=== PATIENT | female | born 1940 | race American Indian/Alaskan Native ===

== ENCOUNTER 2018-12-04 10:00 | Emergency (ER) | payer OTHER ==
[2018-12-04 10:40] VITALS: TEMP 98.3; BMI 25.2
[2018-12-04] MEDS ORDERED: CYCLOBENZAPRINE HCL 5 MG TABLET PO ONE (11:13)
[2018-12-04] MEDS ORDERED: LIDOCAINE 5% TOPICAL PATCH TP ONE (11:13)
--- NOTE | 2018-12-04 11:24 | PDOC ---
History of Present Illness - General Chief Complaint: Lightheaded Stated Complaint: FALL Time Seen by Provider: 12/04/18 10:45 History Source: Patient, Family Exam Limitations: No Limitations - History of Present Illness Initial Comments: 12/04/18 11:24 HPI 78-year-old female with history of osteoarthritis and chronic back pain on muscle relaxer and tramadol as needed presenting with dizziness today. He was walking to go get water in the kitchen when she felt lightheaded/dizzy but no full or trauma or syncope. She does endorse mild headache and dizziness. Of note, 2 days ago she had a similar episode where she was walking and fell at the door when she felt dizzy, subsequently falling onto the right side of her body, no LOC. Since then she endorsed right pinky finger pain bruising and swelling with formation of scar, right shoulder and lower back/buttock pain, worse with moving. She is able to ambulate without difficulty. Has been taking her home regimen of medications with some relief. At the time of the fall, her family member suggested she go get evaluated the patient had refused at the time and also did not want to see her primary doctor yesterday. No new medication changes recent illnesses, respiratory or GI related. Denies syncope, fever, chills, chest pain, SOB, palpitation, weakness, N, V, D, abdominal pain, bladder and bowel problems, leg swelling, Allergies: None Past Medical History: arthritis, chronic back pain Social history: Lives with family. No tobacco, ETOH or drug use. Surgical history: none Meds: as documented in EMR Past History - Past Medical History Allergies/Adverse Reactions: Allergies Allergy/AdvReac Type Severity Reaction Status Date / Time No Known Allergies Allergy Verified 12/04/18 10:29 Home Medications: Ambulatory Orders NK [No Known Home Medication] 12/04/18 COPD: No - Suicide/Smoking/Psychosocial Hx Smoking History: Never smoked Have you smoked in the past 12 months: No Information on smoking cessation initiated: No Hx Alcohol Use: No Drug/Substance Use Hx: No Review of Systems - Review of Systems Able to Perform ROS?: Yes Comments:: 12/04/18 11:24 Review of systems Constitutional: no fevers or chills. HEENT: +headache or dizziness. No visual/hearing disturbances. CVS: no cp or syncope. Resp: no sob. No cough. Gastrointestinal: no abdominal pain, nausea or vomiting. Genitourinary: no urinary sx, hematuria. MUSCULOSKELETAL: No joint swelling. +buttock and lower back pain, +finger pain, +shoulder pain. +joint and muscle aches. SKIN: no redness or skin changes, no discharge, no rash. +scar wound to right finger. Hematologic: no easy bruising/bleeding. NEUROLOGIC: +headache, dizziness, No LOC or altered mental status. No weakness, numbness or tingling. Psych: no anxiety or depression Allergic/Immunologic: no allergies All other systems reviewed and negative, or as documented in HPI. *Physical Exam - Vital Signs Last Vital Signs Temp Pulse Resp BP Pulse Ox 98.3 F 70 18 128/71 97 12/04/18 10:25 12/04/18 10:25 12/04/18 10:25 12/04/18 10:25 12/04/18 10:25 - Physical Exam Comments: 12/04/18 11:24 Physical exam: General: GCS 15 NAD, well appearing HEENT: NCAT, PERRL, EOMI. Airway intact. Dentition intact. No e/o septal hematoma, nasal bridge stable. Neck: neck supple, no midline C spine tenderness or deformity, ROM intact. No anterior mass or crepitus, trachea midline. Resp: Lungs clear bilaterally Chest: no clavicle or chest wall tenderness or crepitus CVS: RRR, 2+ pulses throughout. Abdomen: Abdomen soft, nontender, nondistended. Back: Back nontender, no midline spinal tenderness along cervical/thoracic/ lumbar spine, FROM, no stepoffs. +rt paravertebral and buttock Tenderness to palp, no ecchymosis or crepitus. MSK: Pelvis stable, FROM at the pelvis and hip joints on external/internal rotation. Extremities symmetric; no pain on axial loading. Bilateral shoulder abduction/adduction/flexion/extension and prox strength 5/5 actively against resistance. +point tenderness to right scapula and posterior shoulder, no AC jt deformity or separation or tenderness. 5/5 shoulder shrug strength. deltoid sensation intact; sensation grossly intact in median/radial/ulnar distribution. distal taxation economist strength 5/5. 2+ radialis pulses bilaterally and symmetric. soft compartments, Proximal and distal strength 5/5, taxation economist strength 5/5 - equal and symmetric. Plantar flexion and dorsiflexion 5/5. FROM. Sensation grossly intact to light touch. Neuro: Alert, oriented appropriately. CN II-XII grossly symmetric and intact. no focal neuro deficits. Sensation and strength intact throughout. Skin: intact, normal color and well perfused. +ecchymosis and soft tissue swelling to rt pinky finger, to the distal pulp, scar and tenderness at the PIP. ROM intact. Cap refill <2 sec. Heart Score/ECG Review #1 ECG reviewed & interpreted by me at: 11:40 General ECG Interpretation: Sinus Rhythm, Normal Rate, Normal Intervals, No acute ischemic changes 12/04/18 12:16 EKG normal sinus rhythm at 65 bpm, no interval abnormalities, narrow QRS, ST and T wave segments and morphology normal. ED Treatment Course - LABORATORY CBC & Chemistry Diagram: 12/04/18 12:00 12/04/18 11:58 - RADIOLOGY Radiology Studies Ordered: Category Date Time Status FINGER(S) RIGHT [RAD] Stat Radiology 12/04/18 11:14 Ordered HIP & PELVIS-RIGHT [RAD] Stat Radiology 12/04/18 11:14 Ordered SHOULDER-RIGHT [RAD] Stat Radiology 12/04/18 11:14 Ordered SPINE-LUMBAR SACRAL [RAD] Stat Radiology 12/04/18 11:14 Ordered Medical Decision Making - Medical Decision Making 12/04/18 11:25 See HPI for details Vital signs reviewed, wnl. Trauma ddx: ICH, SDH/ EDH, C spine injury/strain, extremity sprain/fracture, shoulder sprain, AC joint separation, contusion, pelvis fracture. MSK contusion , msk spasms.. Clinically doubt Intra abdominal and thoracic injuries/bleed; no neuro sx or deficits or vertigo to suggest central/neuro etiology most likely medication side effect, on tramadol and muscle relaxer for her chronic back pain - side effect profile likely trigger. Prior notes reviewed, including admissions, discharges and consultations. laboratory results and imaging reviewed, basic labs and lytes wnl, UA_negative for infection Cardiac panel_negative, so doubt cardiac. EKG normal sinus rhythm at 65 bpm, no interval abnormalities, narrow QRS, ST and T wave segments and morphology normal. ED course - analgesia, PO percocet and flexeril, topical lido - reassess - imaging including Xray of affected right extrem: Degenerative changes in the lumbosacral spine, ?osteophytes and partial compression of L1 so likely chronic. disc spaces preserved. Right hip with deformity in the proximal right femur, not present since last imaging 2008 which may be sequelae of trauma will evaluate further with CT imaging X-ray right hand and finger with degenerative changes as well, and otherwise no evidence of fracture or subluxation or bony changes. Xray shoulder with right prox rt humerus deformity, old fx, no acute findings. - confirmed with family at bedside, has had old L1 compression fx, prox humerus and clavicle fx from prior injury pattern, so imaging correlates to that. CT head: Cerebral atrophy, no evidence of bleed or intracranial pathology CT RLE neg for fx, degenerative changes, no hematoma or joint effusion. on reassessment, ambulatory and able to get to the bathroom, steady gait with family cautioned on med side effect profile that could precipitate dizzy spells and fall, prevention and safety provided with instructions for discharge Pt and patient informed of my clinical impression, treatment recommendations and disposition plan. All questions answered to patient's satisfaction and expressed understanding and comfort with this. Reasons for returning to the ED sooner discussed including new or persistent/worsening symptoms with the patient otherwise, follow up with primary care physician. At the time of discharge, the patient is alert, clinically improved, tolerating po and verbalizes understanding of instructions, satisfied with the care received and felt comfortable with the plan. Patient does not suffer from an acute life- threatening medical condition at this time she is safe for outpatient follow- up. 12/04/18 16:33 12/04/18 16:56 12/04/18 17:49 *DC/Admit/Observation/Transfer Diagnosis at time of Disposition: Dizziness Low back strain Qualifiers: Encounter type: initial encounter Qualified Code(s): S39.012A - Strain of muscle, fascia and tendon of lower back, initial encounter Right shoulder strain Qualifiers: Encounter type: initial encounter Qualified Code(s): S46.911A - Strain of unspecified muscle, fascia and tendon at shoulder and upper arm level, right arm , initial encounter - Discharge Dispostion Disposition: HOME Condition at time of disposition: Good Decision to Admit order: No - Referrals Referrals: Domenico Tran [Primary Care Provider] - - Patient Instructions Printed Discharge Instructions: DI for Low Back Pain, DI for Shoulder Sprain Additional Instructions: you were evaluated in the ED for your back and shoulder pain, headache after a fall your imaging results were revealing old fracture in your right arm, old vertebral body fracture in your spine, there was questionable deformity vs fracture in your right hip. this was further evaluated with CT imaging and negative for fracture or dislocation or hematoma or soft tissue injuries. your dizziness is mostly from your medications such as muscle relaxer and tramadol that can predispose you to falls may use tylenol every 6 hours as needed for pain control discuss with primary doctor regarding your pain regimen and alternatives. FALL PREVENTION AT HOME WHAT YOU NEED TO KNOW There are many different factors that can increase your risk of falls. Falls can happen any time, but the majority of them occur in the home. Fall prevention includes ways to make your home and other areas safer. It also includes ways you can move more carefully to prevent a fall. Health conditions that cause changes in your blood pressure, vision, or muscle strength and coordination may increase your risk for falls. Medicines, including anesthesia, may increase your risk for falls if they make you dizzy, weak, or sleepy. FALL PREVENTION TIPS Stand or sit up slowly. This may help you keep your balance and prevent falls. Do not walk and talk at the same time. Concentrate on the task of walking and continue the conversation after you've reached a safe place. Wear shoes that fit well and have soles that taxation economist. Wear shoes both inside and outside. Use slippers with good taxation economist. Avoid shoes with high heels. Use assistive devices as directed. Your healthcare provider may suggest that you use a cane or walker to help you keep you balance. Be sure you have adequate lighting throughout your house. Keep paths clear. Remove books, shoes and other objects from walkways and stairs. Keep cords for telephones and lamps out of the way so you dont need to walk over them. Remove small rugs or secure them with double-sided tape. This will prevent you from tripping. Use a nightlight when getting out of bed at night. Stay active to maintain overall strength and endurance. Know your limitations. If there is a task you can not complete with ease, do not risk a fall by trying to complete it. Call 911 or have someone else call if: You have fallen and are unconscious You have fallen and cannot move part of your body Contact your healthcare provider if: You have fallen and have pain or a headache You have questions or concerns about your condition or care. - Post Discharge Activity
[2018-12-04] MEDS ORDERED: LIDOCAINE 5% TOPICAL PATCH ONE (12:04)
[2018-12-04] MEDS ORDERED: CYCLOBENZAPRINE HCL 10 MG TABLET (FP) ONE (12:04)
[2018-12-04 12:55] LABS: BASO % 0.5 % (0-2.0); EOS % 1.7 % (0-4.5); HEMATOCRIT 35.5 % (32.4-45.2); HEMOGLOBIN 11.3 GM/dL (10.7-15.3); LYMPH % 26.7 % (8-40); MCH 22.9 pg (25.7-33.7); MCHC 31.7 g/dl (32.0-36.0); MEAN CELL VOLUME 72.1 fl (80-96); MEAN PLT VOLUME 7.9 fl (7.5-11.1); MONO % 7.3 % (3.8-10.2); NEUT % 63.8 % (42.8-82.8); PLATELET COUNT 328 K/MM3 (134-434); RBC 4.92 M/mm3 (3.60-5.2); RDW 17.9 % (11.6-15.6); WHITE BLOOD COUNT 7.7 K/mm3 (4.0-10.0)
[2018-12-04 13:06] LABS: ALBUMIN 3.3 g/dl (3.4-5.0); ALK PHOS 109 U/L (45-117); ANION GAP 6 MMOL/L (8-16); BILIRUBIN,TOTAL 0.3 mg/dL (0.2-1); BLOOD UREA NITROGEN 10 mg/dL (7-18); CALCIUM 7.5 mg/dL (8.5-10.1); CHLORIDE 106 mmol/L (98-107); CO2 29 mmol/L (21-32); CREATININE 0.6 mg/dL (0.55-1.3); GLUCOSE,RANDOM 123 mg/dL (74-106); POTASSIUM 4.7 mmol/L (3.5-5.1); SGOT/AST 11 U/L (15-37); SGPT/ALT 21 U/L (13-61); SODIUM 141 mmol/L (136-145); TOT PROT 6.7 g/dl (6.4-8.2)
[2018-12-04 15:26] LABS: URINE APPEARANCE CLEAR; URINE BILIRUBIN NEGATIVE (NEGATIVE); URINE COLOR YELLOW; URINE GLUCOSE (UA) NEGATIVE (NEGATIVE); URINE KETONE NEGATIVE (NEGATIVE); URINE LEUK ESTERASE NEGATIVE (NEGATIVE); URINE NITRITE NEGATIVE (NEGATIVE); URINE PROTEIN NEGATIVE (NEGATIVE); URINE UROBILINOGEN 0.2 mg/dL (0.2-1.0)
[2018-12-04 18:26] VITALS: BP 122/68; PULSE 65
--- NOTE | 2018-12-05 15:14 | EKG ---
Test Reason : Blood Pressure : / mmHG Vent. Rate : 065 BPM Atrial Rate : 441 BPM P-R Int : 156 ms QRS Dur : 074 ms QT Int : 420 ms P-R-T Axes : 051 000 018 degrees QTc Int : 436 ms UNDETERMINED RHYTHM OTHERWISE NORMAL ECG NO PREVIOUS ECGS AVAILABLE Confirmed by BOBO MAN MD ([id number]) on 12/05/2018 3:14:09 PM Referred By: Confirmed By:BOBO MAN MD
== END 2018-12-04 18:26 | disposition home or self-care (01) ==
LOC: JER 10:00
DX: S39.012A Strain of muscle, fascia and tendon of lower back, initial encounter (principal); S46.911A Strain of unspecified muscle, fascia and tendon at shoulder and upper arm level, right arm, initial encounter; R42 Dizziness and giddiness
CPT/HCPCS: 36415; 70450-TC; 72100-TC-FY; 73030-TC-RT-FY; 73140-TC-RT-FY; 73523-TC-FY; 73700-TC-RT; 80053; 81003; 84484; 85025; 87086; 93005; 93010; 99285-25